=== PATIENT | female | born 1960 | race Caucasian/White ===

== ENCOUNTER 2023-10-25 13:42 | Inpatient (IN) | payer MEDICARE ==
[2023-10-25] VITALS (7 sets, daily range): BP systolic 104–138; BP diastolic 60–121
[~2023-10-25] VITALS: Ht 162.6 cm; Wt 54.0 kg
[2023-10-25] MEDS ORDERED: WELLBUTRIN XL300 MG (13:59)
[2023-10-25 15:02] LABS: URINE BILIRUBIN - DIPSTICK Negative (NEGATIVE); URINE BLOOD DIPSTICK Negative (NEGATIVE); URINE GLUCOSE - DIPSTICK Negative (NEGATIVE); URINE KETONE Negative (NEGATIVE); URINE LEUK ESTERASE Negative (NEGATIVE); URINE NITRITE - DIPSTICK Negative (Negative); URINE PROTEIN - DIPSTICK Negative (NEG-TRACE); URINE SPECIFIC GRAVITY <=1.005; URINE UROBILINOGEN - DIPSTICK 0.2 E.U./dL (0.2)
[2023-10-25 15:05] LABS: URINE COLOR Colorless
[2023-10-26] VITALS (11 sets, daily range): BP systolic 102–154; BP diastolic 50–82
[2023-10-27 05:42] VITALS: BP 116/67
[2023-10-27 07:10] LABS: BASO% 0.2 % (0-3); EOS% 0.3 % (0-8); HEMATOCRIT 35.1 % (37.0-47.0); HEMOGLOBIN 11.4 g/dl (12.0-16.0); IMMATURE GRANULOCYTES 0.6 % (0.0-5.0); LYMPH% 9.3 % (15-41); MEAN CELL VOLUME 100.3 fL CALC (80.0-100.0); MEAN CORPUSCULAR HGB 32.6 pG CALC (26.0-32.0); MEAN CORPUSCULAR HGB CONC 32.5 g/dL CAL (32.0-36.0); MONO% 8.7 % (2-13); NEUT# 12.77 thou/uL (2.00-7.15); NEUT% 80.9 % (42-76); RED BLOOD COUNT 3.5 mill/uL (4.20-5.60); RED CELL DISTRI WIDTH 12.1 % (11.5-15.5)
[2023-10-27 07:39] VITALS: BP 113/72
[2023-10-27 16:15] VITALS: BP 132/73
[2023-10-27 19:56] VITALS: BP 117/62
[2023-10-28 07:52] VITALS: BP 125/68
[2023-10-28] MEDS ORDERED: AMOX/K CLAV875 M1 PO (10:07)
[2023-10-28] MEDS ORDERED: PERCOCET 5/321 COMBO PO (10:07)
[2023-10-28] MEDS ORDERED: CIPROFLOXACN500 MG PO (10:08)
[2023-10-28] MEDS ORDERED: METRONIDAZOLE500 MG PO (10:09)
== END 2023-10-28 11:06 | disposition home or self-care (01) | DRG 399 ==
LOC: ED 13:42 → ED-I 13:58 → ED 14:01 → MS2 14:02
PROVIDERS: Nurse Practitioner; ADMIT Surgery; ATTEND Surgery
PROC: 0DTJ4ZZ Resection of Appendix, Percutaneous Endoscopic Approach (ICD-10-PCS; principal; 2023-10-26)
DX: K35.33 Acute appendicitis with perforation, localized peritonitis, and gangrene, with abscess (principal); B96.20 Unspecified Escherichia coli [E. coli] as the cause of diseases classified elsewhere; Z20.822 Contact with and (suspected) exposure to COVID-19
CPT/HCPCS: J0131; J1100; J1650; Q9967

== ENCOUNTER 2023-12-18 07:08 | Day surgery (SDC) | payer MEDICARE ==
[~2023-12-18] VITALS: Ht 162.6 cm; Wt 54.0 kg
[~2023-12-18 07:08] MED LIST: AMOX/K CLAV875 M1 PO; CIPROFLOXACN500 MG PO; METRONIDAZOLE500 MG PO; PERCOCET 5/321 COMBO PO; PHILLIPS MOM311 MG PO; WELLBUTRIN XL300 MG; [UNRECOGNIZED DRUG - OTHER] PO
[2023-12-18] MEDS ORDERED: FAMOTIDINE 10MG/ML 2ML SDV IV ONE (07:19)
[2023-12-18] MEDS ORDERED: LACTATED RINGER'S 1,000 ML IV ONE (07:19)
[2023-12-18 09:27] VITALS: BP 124/75
[2023-12-18] MEDS ORDERED: LIDOCAINE HCL 2% 2ML SDV IV ONE (15:37)
[2023-12-18] MEDS ORDERED: GLYCOPYRROLATE 0.2 MG/ML IV ONE (15:37)
[2023-12-18] MEDS ORDERED: PROPOFOL 200 MG/20 ML VIAL IV ONE (15:37)
== END 2023-12-18 09:18 | disposition home or self-care (01) ==
LOC: ENDO 07:08 → ORM 08:05 → ENDO 08:05 → ORM 09:25
PROVIDERS: ATTEND Surgery
PROC: 0DJD8ZZ Inspection of Lower Intestinal Tract, Via Natural or Artificial Opening Endoscopic (ICD-10-PCS; principal; 2023-12-18)
DX: Z12.11 Encounter for screening for malignant neoplasm of colon (principal); K64.8 Other hemorrhoids; F32.A Depression, unspecified; Z86.010 Personal history of colon polyps